=== PATIENT | male | born 1945 | race Caucasian/White ===

== ENCOUNTER 2017-10-23 05:11 | Inpatient (IN) | payer OTHER, MEDICAID ==
[~2017-10-23] VITALS: Ht 177.8 cm; Wt 70.3 kg
[2017-10-23 05:15] VITALS: BP_SYST 159
[2017-10-23] MEDS ORDERED: NACL 0.9% 1,000 ML IV ONE ×3 (05:30→09:00)
[2017-10-23] MEDS: LEVOTHYROXINE SODIUM 0.025 MG TABLET PO SCH (06:00)
[2017-10-23] MEDS: PANTOPRAZOLE SODIUM 40 MG TAB PO SCH (06:30)
[2017-10-23 06:43] LABS: HEMATOCRIT 34.7 % (36-54); HEMOGLOBIN 11.7 g/dL (14.0-18.0); MEAN CORPUSCULAR HEMOGLOBIN 32 pg (27-31); MEAN CORPUSCULAR HGB CONC 34 % (32-36); MEAN CORPUSCULAR VOLUME 95 fL (79.0-98.0); PLATELET COUNT (AUTO) 371 K/uL (130-430); RED BLOOD CELL COUNT(AUTO) 3.65 MIL/uL (4.2-6.2); RED CELL DISTRIBUTION WIDTH 16.1 % (9.0-15.0); WHITE BLOOD COUNT (AUTO) 19.4 K/uL (4.8-10.8)
[2017-10-23 06:58] LABS: BAND % (MANUAL) 11 % (0-6); BASOPHILS % (MANUAL) 0 % (0-2); EOSINOPHILS % (MANUAL) 0 % (0-7); LYMPHOCYTES % (MANUAL) 4 % (20-46); MONOCYTES % (MANUAL) 8 % (0-11)
[2017-10-23 07:01] LABS: CALCIUM 9.6 mg/dL (8.4-11.0); CREATININE 2.06 mg/dL (0.55-1.30); POTASSIUM 3.7 mmol/L (3.5-5.1)
[2017-10-23 07:05] LABS: ALBUMIN 3.6 g/dL (3.4-4.8); TOTAL BILIRUBIN 0.6 mg/dL (0.0-1.0)
[2017-10-23] MEDS ORDERED: PIPERACILLIN/TAZO 3.375 GM in NS 50 ML IV ONE (07:15)
[2017-10-23] MEDS ORDERED: VANCOMYCIN HCL 1,000 MG in NS 250 ML IV ONE (07:15)
[2017-10-23] MEDS ORDERED: ONDANSETRON HCL 4 MG/2 ML VIAL IVP ONE (07:15)
[2017-10-23] MEDS ORDERED: PIPERACILLIN/TAZOBACTAM 3.375 GM/VIAL (ZOSYN) IV ONE (07:27)
[2017-10-23] MEDS ORDERED: VANCOMYCIN HCL 1000 MG/VIAL IV ONE (07:40)
[2017-10-23 09:32] LABS: BILIRUBIN,URINE NEGATIVE (NEGATIVE); BLOOD, URINE 3+ (NEGATIVE); CLARITY/URINE SL HAZY (CLEAR); COLOR,URINE YELLOW (YELLOW); GLUCOSE,URINE NEGATIVE (NEGATIVE); KETONES,URINE NEGATIVE (NEGATIVE); LEUKOCYTE ESTERASE ,URINE NEGATIVE (NEGATIVE); NITRITE, URINE NEGATIVE (NEGATIVE); PROTEIN URINE TRACE (NEGATIVE); UROBILINOGEN,URINE 0.2 (0.2-1.0)
[2017-10-23] MEDS ORDERED: PRO40 PO (09:36)
[2017-10-23] MEDS ORDERED: APIX5TAB PO (09:36)
[2017-10-23] MEDS ORDERED: DILT120C89 PO (09:36)
[2017-10-23] MEDS ORDERED: LEVO25TA7 PO (09:36)
[2017-10-23] MEDS ORDERED: CHOL2000 PO (09:36)
[2017-10-23 09:46] LABS: PROTHROMBIN TIME 10.5 SECS (9.5-12.5)
[2017-10-23 09:52] LABS: BACTERIA,URINE FEW /HPF (None Seen); RBC,URINE 20-50 /HPF (0-3); WBC,URINE 0-3 /HPF (0-3)
[2017-10-23 09:55] LABS: MUCUS,URINE None Seen /LPF (None Seen); YEAST,URINE Few /HPF (None Seen)
[2017-10-23] MEDS ORDERED: MORPHINE 4 MG/ML INJ. SYRINGE IVP PRN (10:00)
[2017-10-23] MEDS ORDERED: ACETAMINOPHEN 325 MG TABLET PO PRN (10:00)
[2017-10-23] MEDS ORDERED: PANTOPRAZOLE SODIUM 40 MG TAB PO ONE (10:00)
[2017-10-23] MEDS ORDERED: LEVOTHYROXINE SODIUM 0.025 MG TABLET PO ONE (10:00)
[2017-10-23] MEDS ORDERED: MORPHINE 2 MG/ML INJ. SYRINGE IVP PRN (10:00)
[2017-10-23] MEDS ORDERED: DILTIAZEM HCL 120 MG CAP.SR.24H PO ONE (10:00)
[2017-10-23 10:01] VITALS: BP_SYST 128
[2017-10-23] MEDS ORDERED: VANCOMYCIN HCL 1,750 MG in NS 500 ML IV ONE (11:00)
[2017-10-23] MEDS: PIPERACILLIN/TAZO 2.25G/DEX-IS 50 ML IV SCH ×3 (11:43→23:12)
[2017-10-23 13:08] VITALS: BP_SYST 122
[2017-10-23 16:29] VITALS: BP_SYST 108
[2017-10-23] MEDS: D5NS 1,000 ML IV SCH (17:21)
[2017-10-23] MEDS: DILTIAZEM HCL 120 MG CAP.SR.24H PO SCH (21:00)
[2017-10-23] MEDS: APIXABAN 2.5 MG TABLET PO SCH (21:22)
[2017-10-24 00:15] VITALS: BP_SYST 114
[2017-10-24] MEDS: PANTOPRAZOLE SODIUM 40 MG TAB PO SCH (05:42)
[2017-10-24] MEDS: LEVOTHYROXINE SODIUM 0.025 MG TABLET PO SCH (05:42)
[2017-10-24] MEDS: PIPERACILLIN/TAZO 2.25G/DEX-IS 50 ML IV SCH ×4 (05:43→22:18)
[2017-10-24] MEDS: D5NS 1,000 ML IV SCH ×2 (05:44→16:47)
[2017-10-24 07:24] LABS: CALCIUM 7.9 mg/dL (8.4-11.0); CREATININE 1.2 mg/dL (0.55-1.30)
[2017-10-24 07:42] LABS: ALBUMIN 2.3 g/dL (3.4-4.8); TOTAL BILIRUBIN 0.3 mg/dL (0.0-1.0)
[2017-10-24 08:09] VITALS: BP_SYST 123
[2017-10-24] MEDS ORDERED: POTASSIUM CHLORIDE 20 MEQ TAB.PRT.SR PO ONE (08:45)
[2017-10-24 09:09] LABS: HEMOGLOBIN 9.4 g/dL (14.0-18.0); RED BLOOD CELL COUNT(AUTO) 3.07 MIL/uL (4.2-6.2); WHITE BLOOD COUNT (AUTO) 14.3 K/uL (4.8-10.8)
[2017-10-24 09:10] LABS: HEMATOCRIT 28.8 % (36-54); MEAN CORPUSCULAR HEMOGLOBIN 31 pg (27-31); MEAN CORPUSCULAR HGB CONC 33 % (32-36); MEAN CORPUSCULAR VOLUME 94 fL (79.0-98.0); PLATELET COUNT (AUTO) 254 K/uL (130-430); RED CELL DISTRIBUTION WIDTH 16.2 % (9.0-15.0)
[2017-10-24] MEDS: DILTIAZEM HCL 120 MG CAP.SR.24H PO SCH ×2 (09:26→20:50)
[2017-10-24] MEDS: TAMSULOSIN HCL 0.4 MG CAP PO SCH (09:26)
[2017-10-24] MEDS: APIXABAN 2.5 MG TABLET PO SCH ×2 (09:28→20:23)
[2017-10-24 10:07] LABS: BAND % (MANUAL) 16 % (0-6); BASOPHILS % (MANUAL) 0 % (0-2); EOSINOPHILS % (MANUAL) 3 % (0-7); LYMPHOCYTES % (MANUAL) 3 % (20-46); MONOCYTES % (MANUAL) 17 % (0-11)
[2017-10-24 12:00] VITALS: BP_SYST 115
[2017-10-24] MEDS: VANCOMYCIN HCL 1 GM/NS PREMIX 250 ML IV SCH (12:23)
[2017-10-24 20:00] VITALS: BP_SYST 101
[2017-10-25 00:35] VITALS: BP_SYST 121
[2017-10-25] MEDS: D5NS 1,000 ML IV SCH (02:59)
[2017-10-25] MEDS: PIPERACILLIN/TAZO 2.25G/DEX-IS 50 ML IV SCH ×4 (05:16→23:02)
[2017-10-25] MEDS: LEVOTHYROXINE SODIUM 0.025 MG TABLET PO SCH (05:16)
[2017-10-25] MEDS: PANTOPRAZOLE SODIUM 40 MG TAB PO SCH (06:16)
[2017-10-25 08:00] VITALS: BP_SYST 136
[2017-10-25] MEDS: TAMSULOSIN HCL 0.4 MG CAP PO SCH (08:49)
[2017-10-25] MEDS: DILTIAZEM HCL 120 MG CAP.SR.24H PO SCH ×2 (08:49→21:27)
[2017-10-25] MEDS: APIXABAN 2.5 MG TABLET PO SCH ×2 (08:51→21:00)
[2017-10-25] MEDS: VANCOMYCIN HCL 1 GM/NS PREMIX 250 ML IV SCH (11:15)
[2017-10-25 11:53] LABS: BASOPHILS # (AUTO) 0.1 K/uL (0.0-0.2); BASOPHILS % (AUTO) 0.6 % (0.0-2.0); EOSINOPHILS # (AUTO) 0.2 K/uL (0.0-0.4); EOSINOPHILS % (AUTO) 1.6 % (0.0-4.0); HEMATOCRIT 34.7 % (36-54); HEMOGLOBIN 11.9 g/dL (14.0-18.0); LYMPHOCYTES # (AUTO) 0.4 K/uL (1.0-5.5); LYMPHOCYTES % (AUTO) 3.1 % (20.5-51.5); MEAN CORPUSCULAR HEMOGLOBIN 32 pg (27-31); MEAN CORPUSCULAR HGB CONC 34 % (32-36); MEAN CORPUSCULAR VOLUME 93 fL (79.0-98.0); MONOCYTES # (AUTO) 0.8 K/uL (0.0-1.0); MONOCYTES % (AUTO) 6.7 % (1.7-9.3); NEUTROPHILS # (AUTO) 11.2 K/uL (1.8-7.7); PLATELET COUNT (AUTO) 284 K/uL (130-430); RED BLOOD CELL COUNT(AUTO) 3.73 MIL/uL (4.2-6.2); RED CELL DISTRIBUTION WIDTH 15.1 % (9.0-15.0); WHITE BLOOD COUNT (AUTO) 12.7 K/uL (4.8-10.8)
[2017-10-25 12:01] LABS: CALCIUM 8.8 mg/dL (8.4-11.0); CREATININE 0.95 mg/dL (0.55-1.30); POTASSIUM 3.7 mmol/L (3.5-5.1)
[2017-10-25 12:07] LABS: ALBUMIN 2.7 g/dL (3.4-4.8); TOTAL BILIRUBIN 0.2 mg/dL (0.0-1.0)
[2017-10-25 12:11] VITALS: BP_SYST 127
[2017-10-25 16:11] VITALS: BP_SYST 125
[2017-10-25 19:05] VITALS: BP_SYST 129
[2017-10-25 19:29] VITALS: BP_SYST 129
[2017-10-26 00:50] VITALS: BP_SYST 130
[2017-10-26] MEDS: PIPERACILLIN/TAZO 2.25G/DEX-IS 50 ML IV SCH ×2 (04:19→11:40)
[2017-10-26] MEDS: PANTOPRAZOLE SODIUM 40 MG TAB PO SCH (05:55)
[2017-10-26] MEDS: LEVOTHYROXINE SODIUM 0.025 MG TABLET PO SCH (05:55)
[2017-10-26 08:00] VITALS: BP_SYST 125
[2017-10-26] MEDS: DILTIAZEM HCL 120 MG CAP.SR.24H PO SCH (08:53)
[2017-10-26] MEDS: APIXABAN 2.5 MG TABLET PO SCH (08:54)
[2017-10-26] MEDS: TAMSULOSIN HCL 0.4 MG CAP PO SCH (08:55)
[2017-10-26 11:01] VITALS: BP_SYST 127
[2017-10-26 14:09] VITALS: BP_SYST 122
== END 2017-10-26 16:45 | DRG 871 ==
LOC: SED 05:11 → STU 09:33 → SMU 10-25 11:25
PROVIDERS: ADMIT Internal Medicine Hospice and Palliative Medicine; ATTEND Internal Medicine Hospice and Palliative Medicine
DX: A41.9 Sepsis, unspecified organism (principal); J18.9 Pneumonia, unspecified organism; C85.10 Unspecified B-cell lymphoma, unspecified site; N13.6 Pyonephrosis; D68.69 Other thrombophilia; N39.0 Urinary tract infection, site not specified; N13.9 Obstructive and reflux uropathy, unspecified; E03.9 Hypothyroidism, unspecified; G62.9 Polyneuropathy, unspecified; I12.9 Hypertensive chronic kidney disease with stage 1 through stage 4 chronic kidney disease, or unspecified chronic kidney disease; M48.07 Spinal stenosis, lumbosacral region; I48.0 Paroxysmal atrial fibrillation; K40.90 Unilateral inguinal hernia, without obstruction or gangrene, not specified as recurrent; N18.9 Chronic kidney disease, unspecified; Z79.01 Long term (current) use of anticoagulants; Z85.118 Personal history of other malignant neoplasm of bronchus and lung; Z92.21 Personal history of antineoplastic chemotherapy; Z79.899 Other long term (current) drug therapy
CPT/HCPCS: 36415; 70551; 71045; 72148; 80053; 81000-TC; 83605; 83880; 84484; 85007; 85025; 85027; 85610-TC; 85730-TC; 87040-TC; 93005; 96361; 96365; 96366; 96367; 96375; 97110-GP; 97530-GP; 99285; J2405; J2543; J3370; J7030; J7040; J7042